=== PATIENT | male | born 1945 | race Caucasian/White ===

== ENCOUNTER 2019-08-19 07:00 | Day surgery (SDC) | payer MEDICARE ==
[~2019-08-19] VITALS: Ht 177.8 cm; Wt 71.2 kg
[2019-08-19] MEDS ORDERED: normal saline 1000ml 1,000 ML IV SCH (07:25)
[2019-08-19 07:30] VITALS: BP 164/100
[2019-08-19] MEDS ORDERED: MULT1TAB74 PO (07:30)
[2019-08-19 07:58] LABS: BASOPHILS % (AUTO) 0.9 % (0-1); EOSINOPHILS # (AUTO) 0.2 X10'3 (0-0.9); EOSINOPHILS % (AUTO) 3.8 % (0-6); HEMATOCRIT 41.9 % (42.0-52.0); HEMOGLOBIN 14.3 g/dl (14.0-17.9); LYMPHOCYTES # (AUTO) 0.8 X10'3 (1.1-4.8); LYMPHOCYTES % (AUTO) 14.9 % (21-51); MEAN CORPUSCULAR HEMOGLOBIN 33.4 PG (27.0-31.0); MEAN CORPUSCULAR VOLUME 98.4 FL (78-98); MEAN PLATELET VOLUME 7.9 FL (7.4-10.4); MONOCYTES # (AUTO) 0.3 X10'3 (0-0.9); MONOCYTES % (AUTO) 6.7 % (2-12); NEUTROPHILS # (AUTO) 3.8 X10'3 (1.8-7.7); NEUTROPHILS % (AUTO) 73.7 % (42-75); PLATELET COUNT 183 X10'3 (140-440); RED BLOOD COUNT 4.26 X10'6 (4.70-6.10); RED CELL DISTRIBUTION WIDTH 13.2 % (11.5-14.5); WHITE BLOOD COUNT 5.1 X10'3 (4.5-11.0)
[2019-08-19 08:05] LABS: ALBUMIN 4.5 G/DL (3.4-5.0); ANION GAP 14 (8-16); BLOOD UREA NITROGEN 47 MG/DL (7-18); BUN/CREATININE RATIO 9.8 (5.4-32.0); CALCIUM 10.2 MG/DL (8.5-10.1); CHLORIDE 102 MMOL/L (99-107); CREATININE 4.82 MG/DL (0.60-1.10); GLUCOSE 106 MG/DL (70-104); POTASSIUM 3.6 MMOL/L (3.5-5.1); SODIUM 143 MMOL/L (135-145); TOTAL CARBON DIOXIDE 26.9 MMOL/L (24-32); eGFR 12 ML/MIN
[2019-08-19] MEDS ORDERED: LIDOcaine 1% (10mg/ml) 2ml vial SQ ONE (09:20)
[2019-08-19] MEDS ORDERED: heparin 1,000 UNITS/NS 500ml 500 ML ICATH ONE (09:20)
[2019-08-19] MEDS ORDERED: fentaNYL/PF 50MCG/1 ML 2ML syringe IV PRN (09:20)
[2019-08-19] MEDS ORDERED: midazolam 2 mg/2 ml injection IV PRN (09:20)
[2019-08-19] MEDS ORDERED: diphenhydrAMINE 50 mg/ml inj IV ONE ×2 (09:20→09:35)
[2019-08-19] MEDS ORDERED: hydrocortisone sod succ/PF 100mg/2ml inj. IV ONE (09:20)
[2019-08-19] MEDS ORDERED: alteplase 1 mg/ml 5ml syringe ICATH STA ×2 (09:24→09:37)
[2019-08-19] MEDS ORDERED: fentaNYL/PF 50MCG/1 ML 2ML syringe ONE (09:42)
[2019-08-19] MEDS ORDERED: midazolam 2 mg/2 ml injection ONE (09:42)
[2019-08-19] MEDS ORDERED: LIDOcaine 1%/PF 5ML 10 MG/ML VIAL ONE (09:43)
[2019-08-19] MEDS ORDERED: iohexol 300mg/ml 100ml inj. ONE (09:43)
[2019-08-19] MEDS ORDERED: heparin 1,000 UNITS/NS 500ml 500 ML ONE (09:54)
[2019-08-19] MEDS ORDERED: methylPREDNISolone sod succ 125mg/2ml vial ONE (09:54)
[2019-08-19] MEDS ORDERED: diphenhydrAMINE 50 mg/ml inj ONE (09:54)
[2019-08-19] MEDS ORDERED: hydrALAZINE 20mg/ml inj. IV ONE (11:16)
[2019-08-19 11:51] VITALS: BP 156/89
[2019-08-19 12:00] VITALS: BP 162/91
[2019-08-19 12:15] VITALS: BP 162/77
[2019-08-19 12:30] VITALS: BP 144/80
[2019-08-19 12:45] VITALS: BP 136/82
[2019-08-19] MEDS ORDERED: methylPREDNISolone sod succ 125mg/2ml vial IV SCH (14:00)
== END 2019-08-19 13:10 | disposition home or self-care (01) ==
LOC: SSTAY O 07:00
PROVIDERS: ATTEND Radiology Vascular & Interventional Radiology
DX: T82.868A Thrombosis due to vascular prosthetic devices, implants and grafts, initial encounter (principal); E11.22 Type 2 diabetes mellitus with diabetic chronic kidney disease; I12.0 Hypertensive chronic kidney disease with stage 5 chronic kidney disease or end stage renal disease; N18.6 End stage renal disease; Z88.8 Allergy status to other drugs, medicaments and biological substances; Z72.89 Other problems related to lifestyle; Z87.891 Personal history of nicotine dependence; Y83.8 Other surgical procedures as the cause of abnormal reaction of the patient, or of later complication, without mention of misadventure at the time of the procedure; Y92.89 Other specified places as the place of occurrence of the external cause
CPT/HCPCS: 36415; 36906; 76937; 80048; 85025; 99152; 99153; C1725; C1757; C1769; C1876; C1894; J0360; J1200; J1644; J2250; J2930; J2997; J3010; J7030; Q9967